=== PATIENT | female | born 1965 | race Caucasian/White ===

== ENCOUNTER 2023-02-11 09:30 | Emergency (ER) | payer OTHER, SELFPAY ==
[2023-02-11] VITALS (11 sets, daily range): BP systolic 154–170; BP diastolic 79–92; PULSE 69–90; RESP 7–16; TEMP 37.1; O2SAT 100
--- NOTE | ~2023-02-11 | CT_ITS ---
EXAMINATION: CT brain wo con INDICATION: Headache COMPARISON: None TECHNIQUE: Standard unenhanced head CT. The dose-length product (DLP) was 605.33 mGy-cm. The mA was a djusted according to patient size. Iterative reconstruction technique was employed. FINDINGS: There is no intracranial hemorrhage, acute infarction, or abnormal mass lesion. 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 The ventricles are normal. There is no abnormal mass effect or midline shift. The love-white matter differentiation is normal. The bas al cisterns are patent. The orbits are normal. The paranasal sinuses, mastoids and calvarium are norm al. IMPRESSION: 1. No acute intracranial abnormality. Reviewed, dictated and finalized at location A.
--- NOTE | 2023-02-11 09:53 | ECG_ITS ---
Measurements Intervals [place] Rate: 75 P: 18 [place]: 136 QRS: 50 QRSD: 88 T: 56 QT: 392 QTc: 439 Interpretive Statements SINUS RHYTHM BASELINE ARTIFACT- V4-V5 NORMAL ECG NO PREVIOUS ECG AVAILABLE FOR COMPARISON Electronically Signed On 02-11-2023 16:28:27 CDT by Segundo Treviño D.O.
--- NOTE | 2023-02-11 10:04 | ED.GENADULT ---
HPI - General Adult General Chief complaint: Unspecified Stated complaint: THINK I TOOK THE WRONG MEDICINE Time Seen by Provider: 02/11/23 09:46 History of Present Illness HPI narrative: 58-year-old female history of anxiety depression presents to the emergency room for evaluation of dizziness. Patient states that she has been staying in the hospital over the past 2 weeks caring for her sick mother. States that her PCP recently increased her Lamictal, and subsequently changed the dosing of her pill. Patient states that she believes she accidentally took an additional dose of Lamictal 2 nights ago, and has been experiencing dizziness ever since. Related Data Allergies Allergy/AdvReac Type Severity Reaction Status Date / Time No Known Allergies Allergy Verified 02/11/23 09:42 Review of Systems Review of Systems: CONSTITUTIONAL: Denies fever, chills, or sweats. EYES: Denies visual changes, redness, or discharge. ENT: Denies rhinorrhea, congestion, sore throat, or otalgia. CARDIOVASCULAR: Denies chest pain, palpitations, or edema. RESPIRATORY: Denies cough or dyspnea. GASTROINTESTINAL: Denies abdominal pain, nausea, vomiting, or diarrhea. GENITOURINARY: Denies dysuria or hematuria. SKIN: Denies rash or itching. MUSCULOSKELETAL: Denies back pain, joint pain, or myalgia. NEUROLOGIC: Reports dizziness PSYCHIATRIC: Reports anxiety and depression Exam Narrative: GENERAL: Well-appearing, well-nourished, no physical limitations, tearful HEAD: Normocephalic, atraumatic. EYES: Conjunctivae normal, PERRLA and EOMI. CHEST: Clear to auscultation. No respiratory distress. No wheezes rales or rhonchi. HEART: Regular rate and rhythm. No murmur heard. Normal peripheral pulses. ABDOMEN: Soft, nontender, nondistended, normal active bowel sounds. EXTREMITIES: Normal range of motion. No edema. No clubbing or cyanosis SKIN: Warm, dry, no rash. No noted wounds NEURO: No focal deficits. Alert and oriented x3. MAEW. CN's II-XI intact bilaterally, normal gait PSYCH: Cooperative. Normal mood and affect. Course Vital Signs Vital signs: Vital Signs Temperature 37.1 C 02/11/23 09:32 Pulse Rate 90 02/11/23 09:32 Respiratory Rate 16 02/11/23 09:32 Blood Pressure 170/79 H 02/11/23 09:32 Pulse Oximetry 100 02/11/23 09:32 Temperature 37.1 C 02/11/23 09:32 Pulse Rate 90 02/11/23 09:32 Respiratory Rate 16 02/11/23 09:32 Blood Pressure 170/79 H 02/11/23 09:32 Pulse Oximetry 100 02/11/23 09:32 Medical Decision Making MDM Narrative Medical decision making narrative: 58-year-old female history of hypertension, anxiety depression presented to the emergency room for evaluation of dizziness and concerned that she may have taken too much Lamictal 48 hours ago. Patient been experiencing dizziness and lightheadedness since. Patient also reports that she took a benzodiazepine yesterday which exacerbated her dizziness. CT brain showed no acute abnormalities. EKG showed no signs of active ischemia. Lab work was all within normal limits. Patient likely experiencing side effects of additional Lamictal. Vital Signs Vital Signs: Vital Signs Temperature 37.1 C 02/11/23 09:32 Pulse Rate 90 02/11/23 09:32 Respiratory Rate 16 02/11/23 09:32 Blood Pressure 170/79 H 02/11/23 09:32 Pulse Oximetry 100 02/11/23 09:32 Temperature 37.1 C 02/11/23 09:32 Pulse Rate 90 02/11/23 09:32 Respiratory Rate 16 02/11/23 09:32 Blood Pressure 170/79 H 02/11/23 09:32 Pulse Oximetry 100 02/11/23 09:32 Discharge Plan Discharge Clinical Impression: Adverse reaction to antidepressant drug, Dizziness Patient Disposition: Home, Self-Care Condition: Stable Instructions: Antibiotic Form Follow-up/Referrals: PHYSICIAN NOT ON STAFF,NONSTAFF [Primary Care Provider] - Time of Disposition: 11:08
[2023-02-11 10:12] LABS: Basophils Absolute Auto 0.1 K/mm3 (0.0-0.1); Basophils Percent Auto 0.6 % (0.2-1.2); Eosinophils Percent Auto 0.3 % (0-4.4); Hematocrit 38.8 % (37.0-47.0); Hemoglobin 12.6 g/dL (12.0-15.0); Immature Granulocyte Absolute 0.01 K/mm3 (0.00-0.031); Immature Granulocyte Percent A 0.1 % (0-0.5); Lymphocytes Absolute Auto 1.48 K/mm3 (0.9-3.2); Lymphocytes Percent Auto 16.9 % (18.3-44.2); Mean Corpuscular HGB Conc 32.5 g/dl (32-36); Mean Corpuscular Hemoglobin 28.7 pg (26-34); Mean Corpuscular Volume 88.4 fl (80-100); Mean Platelet Volume 9.1 fl (7.4-10.4); Monocytes Absolute Auto 0.5 K/mm3 (0.1-0.6); Monocytes Percent Auto 5.4 % (2.6-8.5); Neutrophils Absolute Auto 6.7 K/mm3 (1.3-6.7); Neutrophils Percent Auto 76.7 % (45.5-73.1); Platelet Count Result 261 k/mm3 (150-375); Red Blood Count 4.39 M/mm3 (4.2-5.4); Red Cell Distribution Width 12.3 % (11.5-14.5); White Blood Count 8.7 K/mm3 (4.5-10.0)
[2023-02-11 10:25] LABS: Alanine Aminotransferase 18 U/L (6-35); Albumin Level 4.7 g/dL (3.5-5.1); Alkaline Phosphatase 68 U/L (38-126); Anion Gap 10 mmol/L (8-16); Aspartate Amino Transferase 25 U/L (14-36); Bilirubin,Total 0.9 mg/dL (0.2-1.3); Blood Urea Nitrogen 13 mg/dL (7-17); Calcium 9.2 mg/dL (8.4-10.2); Carbon Dioxide 23 mmol/L (22-30); Chloride 105 mmol/L (98-107); Estimated CRCL calculation 85 ml/min; Estimated Glomerular Filt Rate > 60; Glucose 99 mg/dL (65-110); Potassium 3.5 mmol/L (3.4-5.0); Sodium 138 mmol/L (137-145)
[2023-02-11 10:37] LABS: Troponin I < 0.012 ng/mL (0.000-0.034)
[2023-02-11 10:51] LABS: Appearance Urine Clear (Clear); Bacteria Urine None Seen /hpf; Bilirubin Urine Negative (Negative); Blood Urine Negative (Negative); Color Urine Yellow (Yellow); Glucose Urine UA Negative (Negative); Ketones Urine Negative (Negative); Leukocyte Esterase Ur Trace LEU/UL (Negative); Nitrate Urine Negative (Negative); Non Pathogenic Casts 0-2; Protein Urine Negative (Negative); RBC Urine 0-2 /hpf (0-2); Specific Grav Ur 1.013 (1.001-1.035); Squamous Epithelial Cell Urine None seen /hpf (Few); Urobilinogen Urine 0.2 mg/dL (<2.0); WBC Urine 0-5 /hpf
--- NOTE | 2023-02-11 10:55 | PC.NURSE ---
Received report from Sharee at this time. Assumed care of pt.
[2023-02-11 10:57] LABS: Add Urine Microscopic? YES
== END 2023-02-11 11:17 | disposition home or self-care (01) ==
PROVIDERS: Emergency Provider Nurse Practitioner Family
DX: R42 Dizziness and giddiness (principal); T43.205A Adverse effect of unspecified antidepressants, initial encounter
CPT/HCPCS: 36415; 70450; 80053; 81001; 84484; 85025; 93005; 99284